=== PATIENT | male | born 1970 | race African-American/Black ===

== ENCOUNTER 2018-11-04 03:34 | Observation (INO) ==
--- NOTE | 2018-11-04 03:51 | PDOC ---
Lower Extremity Injury HPI - General Chief Complaint: Lower Extremity Problem/Injury Stated Complaint: knee to ankle pain in left leg Date Seen by Provider: 11/04/18 Time Seen by Provider: 03:49 Source: POSITIVE: Patient Exam Limitations: POSITIVE: No limitations Nurse's Notes Reviewed & Considered: Yes - History of Present Illness Initial Comments: Neal is a 48-year-old male who presents emergent department left leg pain. S ymptoms started about 2 hours ago. Pain in left leg. Worse with movement or relieving factors no radiation. Moderate in severity. Patient denies chest pain shortness breath. No redness no fall or trauma. No recent travel or surgery. Have you received a tetanus shot in the past 10 years?: Unknown - Patient Home Medications Home Medications: Home Medications NK 11/04/18 - Patient Allergies Allergies/Adverse Reactions: Allergies Allergy/AdvReac Type Severity Reaction Status Date / Time pro Allergy Swelling Verified 11/04/18 03:54 Past Medical History - heen HEENT History: Denies History Cardiovascular History: Denies History Respiratory History: Denies History Gastrointestinal History: Denies History Genitourinary History: Denies History Endocrine History: Denies History Musculoskeletal History: Denies History Neurological History: Denies History Blood Disorders: Denies History Psychiatric History: Denies History Male Reproductive History: Denies History Tobacco Use: Never Smoker Alcohol Use: Occasionally Previous Surgical History: Yes Type / Date of Surgery: Cholecystectomy Significant Family History: No pertinent family hx Past Medical History Reviewed: New Intake History ROS - Limitations ROS Limitations: No Limitations Constitution: REPORTS: Denies Symptoms Cardiovascular: REPORTS: Denies Cardiac Symptoms Respiratory: REPORTS: Denies Resp Symptoms Neurological: REPORTS: Denies Neuro Symptoms Gastrointestinal: REPORTS: Denies GI Symptoms Endocrine: REPORTS: Denies Symptoms Musculoskeletal: REPORTS: Calf Pain Genitourinary: REPORTS: Denies Symptoms Eyes: REPORTS: Denies Symptoms ENT: REPORTS: Denies Symptoms Skin: REPORTS: Denies Skin Symptoms Lympathic: REPORTS: Denies Lympathic Symptoms Immunologic: POSITIVE: Denies Symptoms Psychiatric: POSITIVE: Denies Psych Symptoms Lower Ext Complaint Exam - General Appearance General Appearance: POSITIVE: Alert, Cooperative, Anxious - Extremities Lower Extremity: POSITIVE: Other (There is swelling and tenderness to palpation of left lower extremity compared to contralateral. Good dorsalis pedis pulses bilaterally.) Neurovascular/Tendon: POSITIVE: Sensation Normal, Motor Normal, No Vascular Compromise Skin: POSITIVE: Warm, Dry - HEENT HEENT: POSITIVE: Head Inspection Nml, Eyes Inspection Nml - Neck / Back Neck/Back: POSITIVE: Normal Inspection - Respiratory / CVS Respiratory / CVS: POSITIVE: Chest Non Tender, Breath Sounds Normal, No Respiratory Distress, Heart Sounds Normal, Regular Rate/Rhythm - Abdomen Abdomen: Soft: (All Quadrants), Normal Bowel Sounds: (All Quadrants), No Splenomegaly: (All Quadrants), No Hepatomegaly: (All Quadrants), No Guarding: (All Quadrants), No Rebound: (All Quadrants) Lower Ext Complaint Progress - Results Reviewed by me Xrays/CTs/US Reviewed by me: Yes Lab Results Reviewed by Me: Yes CBC and BMP: 11/04/18 04:05 11/04/18 04:05 Lab Results:: Laboratory Results 11/04/18 11/04/18 11/04/18 04:05 04:05 04:05 WBC 11.86 H RBC 5.10 Hgb 15.8 Hct 45.2 MCV 88.6 MCH 31.0 MCHC 35.0 RDW Std Deviation 41.9 RDW Coeff of Candi 13.2 Plt Count 260 MPV 9.8 Immature Gran % (Auto) 0.2 Neut % (Auto) 72.2 Lymph % (Auto) 19.8 [place] % (Auto) 6.8 Eos % (Auto) 0.7 Baso % (Auto) 0.3 Immature Gran # (Auto) 0.02 Neut # (Auto) 8.57 Lymph # (Auto) 2.35 [place] # (Auto) 0.81 H Eos # (Auto) 0.08 Baso # (Auto) 0.03 WBC Morphology Comment Normal morphology Plt Morphology Comment Normal morphology RBC Morph Comment Normal morphology PT 10.8 INR 1.06 Sodium 143 Potassium 3.9 Chloride 105 Carbon Dioxide 26 Anion Gap 12 BUN 17 Creatinine 1.3 Estimated GFR 59 BUN/Creatinine Ratio 13.07 Glucose 90 Calculated Osmolality 297.0 H Calcium 10.1 Total Creatine Kinase Ur Collection Type Urine Color Urine Clarity Urine pH Ur Specific [place] Urine Protein Urine Glucose (UA) Urine Ketones Urine Occult Blood Urine Nitrate Urine Bilirubin Urine Urobilinogen Ur Leukocyte Esterase Urine RBC Urine WBC Ur Squamous Epith Cells Ur Renal Epithelial Cell Urine Crystals Urine Bacteria Urine Casts Urine Mucus Urine Trichomonas Urine Yeast 11/04/18 11/04/18 04:05 05:10 WBC RBC Hgb Hct MCV MCH MCHC RDW Std Deviation RDW Coeff of Candi Plt Count MPV Immature Gran % (Auto) Neut % (Auto) Lymph % (Auto) [place] % (Auto) Eos % (Auto) Baso % (Auto) Immature Gran # (Auto) Neut # (Auto) Lymph # (Auto) [place] # (Auto) Eos # (Auto) Baso # (Auto) WBC Morphology Comment Plt Morphology Comment RBC Morph Comment PT INR Sodium Potassium Chloride Carbon Dioxide Anion Gap BUN Creatinine Estimated GFR BUN/Creatinine Ratio Glucose Calculated Osmolality Calcium Total Creatine Kinase 499 H Ur Collection Type Clean catch urine Urine Color Yellow Urine Clarity Clear Urine pH 5.0 Ur Specific [place] 1.025 Urine Protein Negative Urine Glucose (UA) Negative Urine Ketones 15 Urine Occult Blood Negative Urine Nitrate Negative Urine Bilirubin Small Urine Urobilinogen 0.2 Ur Leukocyte Esterase Negative Urine RBC 0-1 Urine WBC None Ur Squamous Epith Cells None Ur Renal Epithelial Cell None Urine Crystals None Urine Bacteria Rare Urine Casts None Urine Mucus Moderate Urine Trichomonas None Urine Yeast None - Patient's Progress MDM / ED Course: Neal is a 48-year-old male who presents to the emergency department with pain in his left leg. Vital signs are unremarkable and examination demonstrates slightly swollen tender left leg to palpation. Patient's CBC demonstrates a slight leukocytosis that I don't see skin changes to suggest obvious infection. Venous duplex ultrasound was obtained which demonstrates no evidence of DVT. X- ray of the tib-fib demonstrates no evidence of acute bony abnormality trauma or fracture. Patient's CK level is slightly elevated at 500. Renal function appears normal. Patient was treated with fentanyl and normal saline. Urinalysis demonstrates no obvious blood or myoglobin in the urine. Given no other obvious etiology for his pain rhabdomyolysis appears potential cause. We will have patient admitted for observation fluids and trending of CK. Patient Care Time - Estimated PCT Patient Care Time (In Minutes): 45 Vital Signs - Recent Vital Signs Vital Signs: Vital Signs (Last 8 hours) Pulse Resp BP Pulse Ox 11/04/18 03:47 98 20 128/102 93 - VS Reviewed Vital Signs Reviewed: Yes Discharge Clinical Impression: Rhabdomyolysis Qualifiers: Rhabdomyolysis type: non-traumatic Qualified Code(s): M62.82 - Rhabdomyolysis Discharge Disposition: Admit to Observation Condition: Fair Follow Up With: NONE,NONE [Primary Care Provider] - Date Decision to Admit to Inpatient: 11/04/18 Time Decision to Admit to Inpatient: 05:33
[2018-11-04] MEDS ORDERED: fentaNYL Inj 250 MCG/5 ML VIAL IVP ONE (03:57)
[2018-11-04] MEDS ORDERED: fentaNYL Inj 100 MCG/2 ML VIAL IVP ONE (04:00)
[2018-11-04] MEDS ORDERED: fentaNYL Inj 100 MCG/2 ML VIAL ONE (04:12)
[2018-11-04 04:16] LABS: BASOPHILS # (AUTO) 0.03 10*3/UL; BASOPHILS % (AUTO) 0.3 % (0-1); EOSINOPHILS # (AUTO) 0.08 10*3/UL; EOSINOPHILS % (AUTO) 0.7 % (0-8); Hematocrit [HCT] 45.2 % (42.0-52.0); Hemoglobin [HGB] 15.8 g/dL (14.0-18.0); LYMPHOCYTES # (AUTO) 2.35 10*3/uL; MEAN CORPUSCULAR VOLUME 88.6 FL (80-90); MEAN PLATELET VOLUME 9.8 FL (7.4-12.2); MONOCYTES # (AUTO) 0.81 10*3/UL (0.3-0.8); MONOCYTES % (AUTO) 6.8 % (5-15); NEUTROPHILS # (AUTO) 8.57 10*3/UL; NEUTROPHILS % (AUTO) 72.2 % (50-80)
[2018-11-04 04:17] LABS: PLATELET MORPHOLOGY COMMENT NORMAL MORPHOLOGY (NORM); RBC MORPHOLOGY COMMENT NORMAL MORPHOLOGY (NORM); WBC MORPHOLOGY COMMENT NORMAL MORPHOLOGY (NORM)
[2018-11-04 04:34] LABS: BUN/CREATININE RATIO 13.07 (6-20)
[2018-11-04] MEDS ORDERED: Sodium Chloride 0.9% 1,000 ML PRIMARY IV ONE ×2 (04:49→04:52)
--- NOTE | 2018-11-04 05:19 | DI ---
INDICATION: Left leg pain and edema TECHNIQUE: Real-time imaging of the left common femoral, superficial femoral and popliteal veins is performed utilizing intermittent compression. The study is supplemented with color flow imaging and duplex Doppler during spontaneous flow and calf augmentation. COMPARISON: None. FINDINGS: Normal compressibility is demonstrated from the common femoral vein to the popliteal vein. There is normal response to augmentation. Normal spontaneous phasic flow is noted. IMPRESSION: No evidence of deep venous thrombosis in the left lower extremity.
[2018-11-04 05:21] LABS: BILIRUBIN,URINE SMALL (NEG); CLARITY,URINE CLEAR (CLEAR); COLOR,URINE YELLOW; GLUCOSE, URINE (UA) NEGATIVE (NEG); OCCULT BLOOD,URINE NEGATIVE (NEG); PROTEIN,URINE NEGATIVE (NEG); UROBILINOGEN,URINE 0.2 mg/dL (0.2)
[2018-11-04 05:24] LABS: BACTERIA,URINE RARE; RBC,URINE 0-1 /hpf; URINE SAMPLE TYPE CLEAN CATCH URINE
[2018-11-04] MEDS ORDERED: ONDANSETRON 4 MG/2 ML VIAL IVP PRN (06:00)
[2018-11-04] MEDS ORDERED: DOCUSATE 100 MG CAPSULE PO PRN (06:00)
[2018-11-04] MEDS ORDERED: HYDROmorphone 2 MG/1 ML IVP PRN (06:00)
[2018-11-04] MEDS ORDERED: ACETAMINOPHEN 325 MG TABLET PO PRN (06:00)
[2018-11-04] MEDS ORDERED: CALCIUM CARBONATE 500 MG (TUMS) CHEWABLE TABLET PO PRN (06:00)
[2018-11-04] MEDS ORDERED: LIDOCAINE W/ SODIUM BICARB 0.5 ML SYR SUBD PRN (06:00)
[2018-11-04 06:03] VITALS: RESP 18
--- NOTE | 2018-11-04 08:16 | DI ---
XR TIB/FIB 2VW,11/04/2018 3:52 AM: Clinical History: Pain Previous Exam: None at this facility. Findings: AP and lateral views of the left tibia and fibula are obtained, and demonstrate anatomic alignment wi thout fractures. The surrounding soft tissues are unremarkable. Impression: Normal left tibia and fibula.
[2018-11-04] MEDS: Lactated Ringers 1,000 ML PRIMARY IV SCH ×2 (08:34→11:29)
[2018-11-04 09:34] LABS: BASOPHILS # (AUTO) 0.03 10*3/UL; BASOPHILS % (AUTO) 0.3 % (0-1); EOSINOPHILS # (AUTO) 0.06 10*3/UL; EOSINOPHILS % (AUTO) 0.7 % (0-8); Hematocrit [HCT] 43.5 % (42.0-52.0); Hemoglobin [HGB] 15.1 g/dL (14.0-18.0); LYMPHOCYTES # (AUTO) 2.36 10*3/uL; MEAN CORPUSCULAR HEMOGLOBIN 30.8 PG (27-31); MEAN CORPUSCULAR HGB CONC 34.7 g/dL (33-37); MEAN CORPUSCULAR VOLUME 88.6 FL (80-90); MEAN PLATELET VOLUME 9.7 FL (7.4-12.2); MONOCYTES # (AUTO) 0.56 10*3/UL (0.3-0.8); MONOCYTES % (AUTO) 6.4 % (5-15); NEUTROPHILS # (AUTO) 5.68 10*3/UL; NEUTROPHILS % (AUTO) 65.3 % (50-80); RED BLOOD COUNT 4.91 10^6/uL (4.70-6.10)
[2018-11-04 09:35] LABS: PLATELET MORPHOLOGY COMMENT NORMAL MORPHOLOGY (NORM); RBC MORPHOLOGY COMMENT NORMAL MORPHOLOGY (NORM); WBC MORPHOLOGY COMMENT NORMAL MORPHOLOGY (NORM)
[2018-11-04 09:42] LABS: BLOOD UREA NITROGEN 14 mg/dL (7-22); BUN/CREATININE RATIO 11.66 (6-20); SERUM ALBUMIN 4.6 g/dL (3.5-4.8)
[2018-11-04] MEDS ORDERED: KETOROLAC 15 MG/1 ML VIAL IVP ONE (10:05)
[2018-11-04 11:38] VITALS: BP 127/73; TEMP 97.7; O2SAT 90
[2018-11-04] MEDS: FUROSEMIDE 10 MG/1 ML - 4 ML IVP ONE ×2 (12:48→13:03)
--- NOTE | 2018-11-04 13:07 | PDOC ---
HPI - History of Present Illness History of Present Illness: This very nice 48-year-old gentleman works in [employer] went into the ER with some pain that initiated a couple hours before going to the ER on the left later al side of his leg traumatic event Dopplers lower extremity revealed no DVT straight of the tib-fib no evidence of acute bony fracture or abnormality the only abnormality was a mild leukocytosis of 11,000 and the CKs a 500 UA no guarding or myoglobin in the urine etiology at this point is unknown and then other than overuse maybe patient on medication admitted for mild rhabdomyolysis and was hydrated aggressively. Patient did refuse Lasix repeat CKs were down to 429. leukoCytosis resolved I offered patient to stay 1 more night continue hydration he asked to be discharged I gave him the choice instructed him to drink at least 8 glasses of water a day if pain returns [facility] present time he is pain-free and it feels much better than when he came in our no ulcerations that I can see on his left lower extremity and to me leg swelling is resolved in does not look any bigger than the right leg nurse Oconnor in the room with me during examination Past Medical History Tobacco Use: Never Smoker In the Past 12 Months, Have Used or Abuse Any of the Following Substance: None Medication / Allergies Home Medications: Home Medications Medication Instructions Recorded Confirmed Type NK 11/04/18 11/04/18 History Allergies/Adverse Reactions: Allergies Allergy/AdvReac Type Severity Reaction Status Date / Time pro Allergy Swelling Verified 11/04/18 08:32 Exam - Vitals Vital Signs: Vital Signs Temperature 97.7 F Temperature Source Temporal Artery Scan Pulse Rate [Pulse Oximeter] 92 Pulse Rate 81 Respiratory Rate 18 Blood Pressure [Left Arm] 127/73 Blood Pressure 128/91 Pulse Ox 90 Oxygen Delivery Method Room Air Height 6 ft 1 in Weight 240 lb 4 oz - General General Appearance: No Acute Distress, Cooperative - Respiratory Respiratory Exam: POSITIVE: Clear to Auscultation - Bilaterally, Breathing Non Labored, Normal To Percussion, Normal to Percussion and Palpation - Cardiovascular Cardiovascular Exam: POSITIVE: RRR, No Murmur, No Clicks, No Gallops, No Rubs, PMI Non-Displaced - GI/Abdominal GI/Abdominal Exam: POSITIVE: Normal Bowel Sounds, Non Tender, Non Distended, Soft, No Masses, No Hepatomegaly, No Splenomegaly, No Organomegaly - Extremities Extremities Exam: POSITIVE: Normal Inspection, Full ROM, No Clubbing Present, No Edema Present, No Cyanosis Present. NEGATIVE: Joint Swelling, Pedal Edema, Calf Tenderness Results - Labs CBC and BMP: 11/04/18 09:14 11/04/18 09:14 Assessment and Plan - Patient Problems (1) Rhabdomyolysis Current Visit: Yes Status: Acute Comment: hydrate,lasix, observe trending of CKs Code(s): M62.82 - Rhabdomyolysis Qualifiers: Rhabdomyolysis type: non-traumatic Qualified Code(s): M62.82 - Rhabdomyolysis
--- NOTE | 2018-11-04 14:30 | DCSUMMARY ---
Hospitalization Summary Hospital Course: Final Discharge Diagnosis: Current Visit Problems Problem Status Onset Code Rhabdomyolysis Acute M62.82 Diagnostic Data, Laboratory Data, and Procedures of Signifigance: Laboratory Results 11/04/18 11/04/18 11/04/18 04:05 04:05 04:05 WBC 11.86 H RBC 5.10 Hgb 15.8 Hct 45.2 MCV 88.6 MCH 31.0 MCHC 35.0 RDW Std Deviation 41.9 RDW Coeff of Candi 13.2 Plt Count 260 MPV 9.8 Immature Gran % (Auto) 0.2 Neut % (Auto) 72.2 Lymph % (Auto) 19.8 [place] % (Auto) 6.8 Eos % (Auto) 0.7 Baso % (Auto) 0.3 Immature Gran # (Auto) 0.02 Neut # (Auto) 8.57 Lymph # (Auto) 2.35 [place] # (Auto) 0.81 H Eos # (Auto) 0.08 Baso # (Auto) 0.03 WBC Morphology Comment Normal morphology Plt Morphology Comment Normal morphology RBC Morph Comment Normal morphology PT 10.8 INR 1.06 Sodium 143 Potassium 3.9 Chloride 105 Carbon Dioxide 26 Anion Gap 12 BUN 17 Creatinine 1.3 Estimated GFR 59 BUN/Creatinine Ratio 13.07 Glucose 90 Calculated Osmolality 297.0 H Calcium 10.1 Total Bilirubin AST ALT Alkaline Phosphatase Total Creatine Kinase Total Protein Albumin Globulin Albumin/Globulin Ratio Ur Collection Type Urine Color Urine Clarity Urine pH Ur Specific [place] Urine Protein Urine Glucose (UA) Urine Ketones Urine Occult Blood Urine Nitrate Urine Bilirubin Urine Urobilinogen Ur Leukocyte Esterase Urine RBC Urine WBC Ur Squamous Epith Cells Ur Renal Epithelial Cell Urine Crystals Urine Bacteria Urine Casts Urine Mucus Urine Trichomonas Urine Yeast 11/04/18 11/04/18 11/04/18 04:05 05:10 09:14 WBC 8.71 RBC 4.91 Hgb 15.1 Hct 43.5 MCV 88.6 MCH 30.8 MCHC 34.7 RDW Std Deviation 42.1 RDW Coeff of Candi 13.3 Plt Count 244 MPV 9.7 Immature Gran % (Auto) 0.2 Neut % (Auto) 65.3 Lymph % (Auto) 27.1 [place] % (Auto) 6.4 Eos % (Auto) 0.7 Baso % (Auto) 0.3 Immature Gran # (Auto) 0.02 Neut # (Auto) 5.68 Lymph # (Auto) 2.36 [place] # (Auto) 0.56 Eos # (Auto) 0.06 Baso # (Auto) 0.03 WBC Morphology Comment Normal morphology Plt Morphology Comment Normal morphology RBC Morph Comment Normal morphology PT INR Sodium Potassium Chloride Carbon Dioxide Anion Gap BUN Creatinine Estimated GFR BUN/Creatinine Ratio Glucose Calculated Osmolality Calcium Total Bilirubin AST ALT Alkaline Phosphatase Total Creatine Kinase 499 H Total Protein Albumin Globulin Albumin/Globulin Ratio Ur Collection Type Clean catch urine Urine Color Yellow Urine Clarity Clear Urine pH 5.0 Ur Specific [place] 1.025 Urine Protein Negative Urine Glucose (UA) Negative Urine Ketones 15 Urine Occult Blood Negative Urine Nitrate Negative Urine Bilirubin Small Urine Urobilinogen 0.2 Ur Leukocyte Esterase Negative Urine RBC 0-1 Urine WBC None Ur Squamous Epith Cells None Ur Renal Epithelial Cell None Urine Crystals None Urine Bacteria Rare Urine Casts None Urine Mucus Moderate Urine Trichomonas None Urine Yeast None 11/04/18 09:14 WBC RBC Hgb Hct MCV MCH MCHC RDW Std Deviation RDW Coeff of Candi Plt Count MPV Immature Gran % (Auto) Neut % (Auto) Lymph % (Auto) [place] % (Auto) Eos % (Auto) Baso % (Auto) Immature Gran # (Auto) Neut # (Auto) Lymph # (Auto) [place] # (Auto) Eos # (Auto) Baso # (Auto) WBC Morphology Comment Plt Morphology Comment RBC Morph Comment PT INR Sodium 142 Potassium 4.1 Chloride 109 Carbon Dioxide 25 Anion Gap 8 BUN 14 Creatinine 1.2 Estimated GFR > 60 BUN/Creatinine Ratio 11.66 Glucose 92 Calculated Osmolality 294.0 H Calcium 9.4 Total Bilirubin 0.5 AST 30 ALT 46 Alkaline Phosphatase 69 Total Creatine Kinase 426 H Total Protein 7.8 Albumin 4.6 Globulin 3.3 Albumin/Globulin Ratio 1.30 Ur Collection Type Urine Color Urine Clarity Urine pH Ur Specific [place] Urine Protein Urine Glucose (UA) Urine Ketones Urine Occult Blood Urine Nitrate Urine Bilirubin Urine Urobilinogen Ur Leukocyte Esterase Urine RBC Urine WBC Ur Squamous Epith Cells Ur Renal Epithelial Cell Urine Crystals Urine Bacteria Urine Casts Urine Mucus Urine Trichomonas Urine Yeast History and Physical pertinent to Admission: Course of Hospitalization: See H&P for same-day admit and discharge observation Vitals reviewed and are listed below Vital Signs (24 hrs) 11/04/18 03:47 11/04/18 05:55 11/04/18 06:01 Temperature 97.7 F 96.7 F L Pulse Rate 81 Pulse Rate [Pulse Oximeter] 98 86 Respiratory Rate 20 18 18 Blood Pressure 128/91 Blood Pressure [Left Arm] 128/102 136/82 Pulse Ox 93 95 93 11/04/18 07:24 11/04/18 11:36 Temperature 98.5 F 97.7 F Pulse Rate Pulse Rate [Pulse Oximeter] 87 92 Respiratory Rate 18 18 Blood Pressure Blood Pressure [Left Arm] 122/64 127/73 Pulse Ox 94 90 Assessment and Plan: 1. As per discharge assessments above 2. Disposition: Home as requested by patient 3. Condition on discharge, stable and improved. 4. Diet: regular diet 5. Activities: resume normal activities 6. Follow-Up: 1. [PCP] 2. Go back to ER if pain returns 7. Medications at the Time of Discharge: Home Medications 3 Medication Instructions Recorded Confirmed Type NK 11/04/18 11/04/18 History 8. Time, care, counseling and coordination of care for this discharge is greater than 30 minutes. Exam - Vitals Vital Signs: Vital Signs Temperature 97.7 F Temperature Source Temporal Artery Scan Pulse Rate [Pulse Oximeter] 92 Pulse Rate 81 Respiratory Rate 18 Blood Pressure [Left Arm] 127/73 Blood Pressure 128/91 Pulse Ox 90 Oxygen Delivery Method Room Air Height 6 ft 1 in Weight 240 lb Patient Problems - Patient Problem List (1) Rhabdomyolysis Current Visit: Yes Status: Acute Code(s): M62.82 - Rhabdomyolysis Qualifiers: Rhabdomyolysis type: non-traumatic Qualified Code(s): M62.82 - Rhabdomyolysis Category: Medical
== END 2018-11-04 14:35 | disposition home or self-care (01) ==
LOC: MED/SURG 03:34 → ER 03:34 → MED/SURG 05:55
PROVIDERS: ADMIT Internal Medicine; ATTEND Internal Medicine